=== PATIENT | male | born 1935 | race Caucasian/White ===

== ENCOUNTER 2019-01-02 07:02 | Day surgery (SDC) | payer MEDICARE ==
[~2019-01-02] VITALS: Ht 180.3 cm; Wt 79.5 kg
[~2019-01-02 07:02] MED LIST: AMOCLA875 PO; ASPI81CH PO; ASPI81EC PO; ATOR20 PO; Abilify2 MG PO; BISA5EC PO; FISH1000 PO; FLUO20; HYDACE5 PO; Hair, Skin & N1 EACH PO; IBUPROFEN PO; Ibuprofen Ib200 MG PO; MAGCIT300 PO; MULVITA; MULVITMIND PO; NIAC500ER PO; NYST100SU; SERT25 PO; SERT50 PO
--- NOTE | 2019-01-02 13:17 | NUR ---
TR BAND WITH 2 ML OF AIR REMOVED Q15MIN FOR SUCCESSFUL DEFLATION WITHOUT OOZE OR HEMATOMA. BAND LEFT IN PLACE FOR APPROX 30 MIN PRIOR TO REMOVEAL. NO COMPLICATION(S) APPARENT. DSG PLACED AND SPLINT BOARD REAPPLIED TO ANTERIOR FA. DISCHARGE INSTRUCTIONS PROVIDED VERBALLY, USING WRITTEN MATERIALS. EMPHASIS PLACED ON MOBILITY (USE OF LIMB) RESTRICTIONS TO PREVENT BLEEDING, AND INFECTION CONTROL. SIGNED ACKNOWLEDGEMENT OBTAINED FROM (PRESENT DURING INSTRUCTIONS REVIEW). IV DC'D WITH CANNULA TIP INTACT. FOLDED 2X2 GAUZE PLACED WITH COBAN WRAP. PT DRESSED SELF AND PROVIDED WITH WHEELCHAIR ESCORT FOR DISCHARGE FROM HOSPITAL.
== END 2019-01-04 22:51 | disposition home or self-care (01) ==
LOC: MHTC 07:02
DX: I25.119 Atherosclerotic heart disease of native coronary artery with unspecified angina pectoris (principal); R06.00 Dyspnea, unspecified; Z88.0 Allergy status to penicillin; Z79.899 Other long term (current) drug therapy; Z79.82 Long term (current) use of aspirin
CPT/HCPCS: 93454; 99152; C1769; C1887; C1894; J1644; J2250; J3010; J7030; Q9967

== ENCOUNTER → 2021-06-28 | Outpatient (CLI) | payer MEDICARE ==
[~2021-06-28] MED LIST changes: +ACET325 PO; +ALBU90OI INH; +Aspirin EC81 MG PO; +IBUP400 PO; +Isosorbide Mono30 MG PO; +OSEL75CA PO
[2021-06-28 16:54] LABS: Body Fluid Crystals NEG (NEGATIVE)
== END | disposition home or self-care (01) ==
LOC: LAB 16:28 → LAB SHORT 16:28
PROVIDERS: Nurse Practitioner
DX: M25.532 Pain in left wrist (principal); M25.432 Effusion, left wrist
CPT/HCPCS: 89060

== ENCOUNTER 2021-11-12 10:38 | Emergency (ER) | payer MEDICARE ==
[~2021-11-12] VITALS: Ht 180.3 cm; Wt 77.1 kg
[2021-11-12] MEDS ORDERED: Cyclobenzaprine5 MG PO (12:17)
== END 2021-11-12 12:38 | disposition home or self-care (01) ==
LOC: ER 10:38
DX: M75.32 Calcific tendinitis of left shoulder (principal); M62.830 Muscle spasm of back; Z88.0 Allergy status to penicillin; Z79.899 Other long term (current) drug therapy
CPT/HCPCS: 73030; 96372; 99283-25; A9270; J1885

== ENCOUNTER 2022-08-08 14:48 | Emergency (ER) | payer MEDICARE ==
[~2022-08-08] VITALS: Ht 180.3 cm; Wt 75.8 kg
[~2022-08-08 14:48] MED LIST changes: +Cyclobenzaprine5 MG PO
[2022-08-08 18:15] LABS: Influenza A, PCR NEGATIVE (NEGATIVE); Influenza B, PCR NEGATIVE (NEGATIVE); Resp Syncytial Virus, PCR NEGATIVE (NEGATIVE); SARS-Cov-2 (COVID-19) PCR, MMC NEGATIVE (NEGATIVE)
[2022-08-08 19:21] LABS: BASOPHILS ABSOLUTE AUTO 0.01 K/mm3 (0.00-0.23); BASOPHILS PERCENT AUTO 0 % (0-2); EOSINOPHILS PERCENT AUTO 0 % (0-6); Hematocrit 42.1 % (37.0-53.0); Hemoglobin 14.7 g/dL (13.5-17.5); IMMATURE GRAN ABSOLUTE AUTO 0.05 K/mm3 (0.00-0.10); IMMATURE GRAN PERCENT AUTO 1 % (0-1); LYMPHOCYTES ABSOLUTE AUTO 0.44 K/mm3 (0.84-5.20); LYMPHOCYTES PERCENT AUTO 4 % (21-46); MONOCYTES ABSOLUTE AUTO 0.36 K/mm3 (0.16-1.47); MONOCYTES PERCENT AUTO 4 % (4-13); Mean Corpuscular HGB 30.1 pg (26.0-34.0); Mean Corpuscular HGB Conc 34.9 g/dL (31.5-36.5); Mean Corpuscular Volume 86 fL (80-100); Mean Platelet Volume 10.1 fL (9.1-12.4); NEUTROPHILS ABSOLUTE AUTO 9.25 K/mm3 (1.96-9.15); NEUTROPHILS PERCENT AUTO 91 % (41-73); Platelet Count 266 K/mm3 (150-400); RDW Coefficient Variation 12.6 % (11.7-14.2); RDW Standard Deviation 39.9 fL (35.1-46.3); Red Blood Cell Count 4.88 M/mm3 (4.30-5.90); White Blood Cell Count 10.11 K/mm3 (4.00-11.30)
[2022-08-08 19:32] LABS: Albumin, Blood 3.5 g/dL (3.4-5.0); Albumin/Globulin Ratio 0.9 (0.8-1.8); Bilirubin, Total 0.5 mg/dL (0.1-1.0); Bun/Creatinine Ratio 26.2 (12.0-20.0); Calcium, Blood 8.6 mg/dL (8.5-10.1); Creatinine, Blood 1.3 mg/dL (0.60-1.20); Globulin, Blood 3.9 g/dL (2.2-4.0); Magnesium, Blood 2.1 mg/dL (1.6-2.4); Potassium, Blood 4.6 mmol/L (3.5-5.5); Total Protein, Blood 7.4 g/dL (6.4-8.2)
[2022-08-08 21:01] LABS: Source, Urine Straight Cath
[2022-08-08 21:08] LABS: Appearance, Urine Clear (Clear); Bilirubin, Urine Neg (Neg); Blood, Urine Neg (Neg); Color, Urine Yellow (P-Yellow); Glucose Qualitative, Urine Neg (Neg); Ketones, Urine Neg (Neg); Leukocyte Esterase, Urine Neg (Neg); Nitrite, Urine Neg (Neg); Protein, Urine 1+ (Neg); Urobilinogen, Urine NORM (Normal)
== END 2022-08-08 22:21 | disposition home or self-care (01) ==
LOC: ER 14:48
PROVIDERS: Emergency Medicine; Physician Assistant
DX: B34.9 Viral infection, unspecified (principal); Z20.822 Contact with and (suspected) exposure to COVID-19
CPT/HCPCS: 0241U; 36415; 71046; 80053; 83605; 83735; 85025; J7030

== ENCOUNTER 2024-03-22 18:31 | Emergency (ER) | payer OTHER ==
[~2024-03-22] VITALS: Ht 172.7 cm; Wt 72.6 kg
[2024-03-22 18:31] VITALS: BP 166/108
[2024-03-22] MEDS ORDERED: Diphth,Pertuss(Acell),Tet Vac 0.5 ML VIAL IM ONE (18:45)
[2024-03-22 18:48] LABS: BASOPHILS ABSOLUTE AUTO 0.01 K/mm3 (0.00-0.23); BASOPHILS PERCENT AUTO 0 % (0-2); EOSINOPHILS ABSOLUTE AUTO 0.07 K/mm3 (0.00-0.68); EOSINOPHILS PERCENT AUTO 1 % (0-6); Hematocrit 36.3 % (37.0-53.0); Hemoglobin 12.5 g/dL (13.5-17.5); IMMATURE GRAN ABSOLUTE AUTO 0.03 K/mm3 (0.00-0.10); IMMATURE GRAN PERCENT AUTO 0 % (0-1); LYMPHOCYTES ABSOLUTE AUTO 1.07 K/mm3 (0.84-5.20); LYMPHOCYTES PERCENT AUTO 15 % (21-46); MONOCYTES ABSOLUTE AUTO 0.79 K/mm3 (0.16-1.47); MONOCYTES PERCENT AUTO 11 % (4-13); Mean Corpuscular HGB 30.4 pg (26.0-34.0); Mean Corpuscular HGB Conc 34.4 g/dL (31.5-36.5); Mean Corpuscular Volume 88 fL (80-100); Mean Platelet Volume 9.8 fL (9.1-12.4); NEUTROPHILS ABSOLUTE AUTO 5.16 K/mm3 (1.96-9.15); NEUTROPHILS PERCENT AUTO 72 % (41-73); Platelet Count 202 K/mm3 (150-400); RDW Coefficient Variation 12.7 % (11.7-14.2); RDW Standard Deviation 41.2 fL (35.1-46.3); Red Blood Cell Count 4.11 M/mm3 (4.30-5.90); White Blood Cell Count 7.13 K/mm3 (4.00-11.30)
[2024-03-22 19:03] LABS: International Normalized Ratio 0.99; Prothrombin Time Results 10.6 Sec (9.7-11.5)
[2024-03-22 19:10] LABS: Albumin, Blood 3.5 g/dL (3.4-5.0); Bilirubin, Total 0.6 mg/dL (0.1-1.0); Bun/Creatinine Ratio 14.7 (12.0-20.0); Calcium, Blood 8.2 mg/dL (8.5-10.1); Creatinine, Blood 1.29 mg/dL (0.60-1.20); Globulin, Blood 3.4 g/dL (2.2-4.0); Potassium, Blood 3.9 mmol/L (3.5-5.5); Total Protein, Blood 6.9 g/dL (6.4-8.2)
[2024-03-22] MEDS ORDERED: CLIN300 PO (23:35)
[2024-03-22] MEDS ORDERED: Clindamycin HCl 150 MG Cap PO ONE (23:35)
== END 2024-03-23 00:30 | disposition home or self-care (01) ==
LOC: ER 18:31
PROVIDERS: Student in an Organized Health Care Education/Training Program
DX: S06.0X0A Concussion without loss of consciousness, initial encounter (principal); S01.21XA Laceration without foreign body of nose, initial encounter; W18.30XA Fall on same level, unspecified, initial encounter
CPT/HCPCS: 70450; 72125; 80053; 85025; 85610; 90715; A9270

== ENCOUNTER 2024-05-21 22:35 | Emergency (ER) | payer OTHER ==
[~2024-05-21] VITALS: Ht 177.8 cm; Wt 81.7 kg
[~2024-05-21 22:35] MED LIST changes: +CLIN300 PO; +DOCU100 PO; +DOXY100 PO; +GUAI600T33 PO; +LEVSOD25 PO; +VISBIOME 112.51 EACH PO
[2024-05-21 22:39] VITALS: BP 140/92
[2024-05-22] MEDS ORDERED: Fluticasone 0.05% Nasal Spray SCH (00:10)
[2024-05-22] MEDS ORDERED: Loratadine 10 MG Tab PO ONE (00:10)
[2024-05-22] MEDS ORDERED: Bacitracin Zinc Oint 1GRAM UD Packet TOP ONE (00:10)
[2024-05-22] MEDS ORDERED: LORA10ER PO (01:03)
== END 2024-05-22 01:50 | disposition home or self-care (01) ==
LOC: ER 22:35
DX: R04.0 Epistaxis (principal); Z88.0 Allergy status to penicillin; Z79.899 Other long term (current) drug therapy; I10 Essential (primary) hypertension
CPT/HCPCS: 30901; 99283-25; A9270